=== PATIENT | female | born 1950 | race Caucasian/White ===

== ENCOUNTER 2018-04-28 19:53 | Inpatient (IN) | payer MEDICAID, OTHER ==
[~2018-04-28] VITALS: Ht 147.3 cm; Wt 45.0 kg
[2018-04-28] MEDS ORDERED: ACETAMINOPHEN 500 MG TAB PO STA (22:24)
[2018-04-29] MEDS: DEXTROSE 5%-0.45% NACL 1,000 ML IV SCH ×3 (00:41→17:16)
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
[2018-04-29] MEDS ORDERED: NACL 0.9% 3 ML SYG IV SCH (01:00)
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
[2018-04-29 01:47] VITALS: BP 165/87; PULSE 112; RESP 20
[2018-04-29 02:18] VITALS: Ht 147.3 cm; Wt 45.0 kg
[2018-04-29 05:00] VITALS: BP 155/87
[2018-04-29] MEDS: PANTOPRAZOLE 40 MG INJ IV SCH (05:40)
[2018-04-29 08:00] VITALS: BP 161/81; PULSE 109; RESP 17
[2018-04-29 09:17] VITALS: BP 148/81; PULSE 87
[2018-04-29] MEDS: morphine 2 MG INJ IV PRN ×2 (13:56→18:28)
[2018-04-29 14:20] VITALS: BP 161/83; PULSE 109; RESP 17
[2018-04-29 20:00] VITALS: BP 142/86; PULSE 96; RESP 18
[2018-04-29] MEDS: ONDANSETRON 4 MG INJ IV PRN (21:59)
[2018-04-30 02:00] VITALS: BP 135/79; PULSE 77; RESP 18
[2018-04-30] MEDS: DEXTROSE 5%-0.45% NACL 1,000 ML IV SCH (05:17)
[2018-04-30] MEDS: PANTOPRAZOLE 40 MG INJ IV SCH (05:53)
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
[2018-04-30 08:36] VITALS: BP 124/84; PULSE 79; RESP 18
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
[2018-04-30] MEDS: ENOXAPARIN 40 MG/0.4 ML SYG SC SCH (12:02)
--- NOTE | 2018-04-30 14:10 | RADRPT ---
Echocardiogram Report Patient Name: Lauren NEVAREZnt ID: [id number] : 1950 (67y 10m)Study Date: 04/30/2018 12:34:17 PM Gender: FAccession #: [id number] Tech: Luciano Selby [facility] Location: [id number] Ref.Physician: SUZE DUMONT Height(Cm): BSA: Weight(Kg): Quality: AdequateAccount #: Procedures: Echocardiographic Report: Transthoracic echocardiogram with complete 2D, M-Mode, and doppler examination. Indications: Evaluate Left Ventricular function, and Pre-op. Measurements: 2D/M Mode Doppler Measurement Value Normal Range Measurement Value Normal Range LVIDd 2D 2.6 [ 3.8 - 5.2 ] cm AV Peak Rip 1.9 [ 100.0 - 170.0 ] cm/sec LVIDs 2D 2.0 [ 2.2 - 3.5 ] cm AV Peak PG 15.0 [ 2.0 - 9.0 ] mmHg LVPWd 2D 1.0 [ 0.6 - 0.9 ] cm LVOT Peak Rip 1.2 [ 70.0 - 110.0 ] cm/sec IVSd 2D 0.9 [ 0.6 - 0.9 ] cm LVOT Peak PG 6.0 [ 2.0 - 6.0 ] mmHg AoR Diam 2D 2.5 [ 2.3 - 3.1 ] cm Lat E` Irp 0.1 [ 10.0 - 15.0 ] cm/sec EDV 2D 24.4 [ 46.0 - 106.0 ] ml TR Peak Rip 3.4 [ 100.0 - 280.0 ] cm/sec ESV 2D 13.4 [ 14.0 - 42.0 ] ml TR Peak PG 47.0 mmHg EF 2D 45.1 [ 54.0 - 74.0 ] percent RVSP 50.0 [ 10.0 - 36.0 ] mmHg LA Dimen 2D 2.1 [ 2.7 - 3.8 ] cm RA Pressure 3.0 mmHg Findings: Left Ventricle: Normal left ventricular systolic function. Normal left ventricular cavity size. Normal left ventricular wall thickness. Ejection fraction is visually estimated at 65 %. Tissue Doppler/Mitral Doppler indices are consistent with impaired relaxation (Stage I diastolic dysfunction). Right Ventricle: Normal right ventricular size. Normal right ventricular systolic function. Left Atrium: The left atrium is normal in size. Right Atrium: The right atrium is normal in size. Mitral Valve: Mitral valve leaflets appear mildly thickened. Mild mitral annular calcification. Trace mitral regurgitation. Aortic Valve: Normal appearance of the aortic valve. No significant aortic stenosis or insufficiency. Tricuspid Valve: Normal appearance of the tricuspid valve. Estimated peak PA systolic pressure 50 mmHg. There is mild tricuspid regurgitation. Pulmonic Valve: Normal pulmonic valve appearance. Pericardium: Normal pericardium with no significant pericardial effusion. Aorta: Normal aortic root. IVC: Normal size and normal respiratory collapse consistent with normal right atrial pressure. Conclusions: Normal left ventricular systolic function. Normal left ventricular cavity size. Normal left ventricular wall thickness. Ejection fraction is visually estimated at 65 %. Tissue Doppler/Mitral Doppler indices are consistent with impaired relaxation (Stage I diastolic dysfunction). Electronically Signed By: Alex Whiteside 2018-04-30 14:09:48 PST
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
[2018-04-30 14:40] VITALS: BP 120/82; PULSE 82; RESP 18
[2018-04-30] MEDS: morphine 2 MG INJ IV PRN (16:08)
[2018-04-30 20:31] VITALS: BP 154/90; PULSE 92; RESP 18
[2018-05-01 02:00] VITALS: BP 142/84; RESP 17
[2018-05-01] MEDS: ONDANSETRON 4 MG INJ IV PRN ×2 (02:41→12:50)
[2018-05-01] MEDS: morphine 2 MG INJ IV PRN ×5 (02:41→23:06)
[2018-05-01] MEDS: PANTOPRAZOLE 40 MG INJ IV SCH (05:06)
[2018-05-01 08:25] VITALS: BP 141/81; PULSE 90; RESP 17
[2018-05-01] MEDS: ENOXAPARIN 40 MG/0.4 ML SYG SC SCH (09:00)
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
[2018-05-01 14:00] VITALS: BP 149/81; PULSE 86; RESP 18
[2018-05-01 20:00] VITALS: BP 166/89; PULSE 93; RESP 18
[2018-05-01] MEDS ORDERED: POLYETHYLENE GLYCOL 17 GM PACKET PO ONE (23:30)
[2018-05-02] VITALS (28 sets, daily range): BP systolic 106–179; BP diastolic 63–95; PULSE 87–105; RESP 11–21
[2018-05-02] MEDS: hydrALAzine 20 MG INJ IV PRN (02:54)
[2018-05-02] MEDS: ONDANSETRON 4 MG INJ IV PRN (03:40)
[2018-05-02] MEDS: PANTOPRAZOLE 40 MG INJ IV SCH (05:44)
[2018-05-02] MEDS ORDERED: METOCLOPRAMIDE 10 MG INJ ONE (07:00)
[2018-05-02] MEDS: ENOXAPARIN 40 MG/0.4 ML SYG SC SCH (08:58)
[2018-05-02] MEDS ORDERED: PROPOFOL 20 ML ONE (09:49)
[2018-05-02] MEDS ORDERED: ONDANSETRON 4 MG INJ ONE (09:49)
[2018-05-02] MEDS ORDERED: LIDOCAINE 2% (SDV) 5 ML INJ ONE (09:49)
[2018-05-02] MEDS ORDERED: CEFAZOLIN 1 GM INJ ONE (09:49)
[2018-05-02] MEDS ORDERED: MIDAZOLAM 1 MG/ML 2 ML INJ ONE (10:03)
[2018-05-02] MEDS ORDERED: FENTAnyl 50 MCG/ML VIAL ONE (10:04)
--- NOTE | 2018-05-02 10:45 | PREAC ---
Date/Time of Note Date/Time of Note DATE: 05/02/18 TIME: 10:43 Anesthesia Eval and Record Evaluation Time Pre-Procedure Interview DATE: 05/02/18 TIME: 10:43 Age 67 Sex female NPO: 8 hrs Preoperative diagnosis Left tibial Fx Planned procedure ORIF L tibia Past Medical History Past Medical History: None Surgery & Anesthesia Issues No known issue Meds Anticoagulation: No Beta Clay within 24 hr: No Reason Beta Clay not given: Pt. not on B-Clay Current Medications IV Flush (NS 3 ml) 3 ml PER PROTOCOL IV ; Start 04/29/18 at 01:00 Ondansetron HCl (Zofran Inj) 4 mg Q6H PRN IV NAUSEA/VOMITING Last administered on 05/02/18at 03:40; Admin Dose 4 MG; Start 04/29/18 at 01:00 Morphine Sulfate (morphine) 2 mg Q4H PRN IV .PAIN 7-10 Last administered on 05/01/18at 23:06; Admin Dose 2 MG; Start 04/29/18 at 01:00 Pantoprazole (Protonix Iv) 40 mg DAILY@06 IV Last administered on 05/02/18at 05:44; Admin Dose 40 MG; Start 04/29/18 at 06:00 Enoxaparin Sodium (Lovenox) 40 mg DAILY SC Last administered on 04/30/18at 12:02; Admin Dose 40 MG; Start 04/30/18 at 11:30 Hydralazine HCl (Apresoline) 10 mg Q4H PRN IV ELEVATED SYSTOLIC BP Last administered on 05/02/18at 02:54; Admin Dose 10 MG; Start 05/02/18 at 02:30 Meds reviewed: Yes Allergies Coded Allergies: No Known Allergy (Unverified , 04/28/18) Allergies Reviewed: Yes Labs/Studies Labs Reviewed: Reviewed by anesthesiologist Result Diagram: 05/02/1844005/02/18440 Laboratory Tests 05/02/18 04:41 test: Negative Studies: ECG, CXR, 2D Echo Pre-procedure Exam Last vitals Vital Signs Date Temp Pulse Resp B/P (MAP) Pulse Ox O2 O2 Flow FiO2 Time Delivery Rate 05/02/18 98.5 101 17 106/63 96 Room Air 08:32 (77) Airway: Adequate mouth opening, Adequate thyromental dist Mallampati: Mallampati III Teeth: Abnormal (dentures out) Lung: Normal Heart: Normal ASA Physical Status ASA physical status: 2 Emergency: None Planned Anesthetic General/MAC: LMA Planned Pain Management Single shot nerve block, Parenteral pain med Pre-operative Attestations Prior to commencing anesthesia and surgery, the patient was re-evaluated, there was verification of: *The patient's identity *The results of appropriate recent lab work and preoperative vital signs *The above evaluation not changing prior to induction *Anesthetic plan, risk benefits, alternative and complications discussed with patient/family; questions answered; patient/family understands, accepts and wishes to proceed. SEDRICK TRAMMELL MD May 02, 2018 10:45
[2018-05-02] MEDS ORDERED: LABETALOL HCL 20MG INJ IV PRN (11:00)
[2018-05-02] MEDS ORDERED: FENTAnyl 50 MCG/ML VIAL IV PRN ×2 (11:00)
[2018-05-02] MEDS ORDERED: DIPHENHYDRAMINE 50 MG INJ IV PRN (11:00)
[2018-05-02] MEDS ORDERED: hydrALAzine 20 MG INJ IV PRN (11:00)
[2018-05-02] MEDS ORDERED: ONDANSETRON 4 MG INJ IV PRN (11:00)
[2018-05-02] MEDS ORDERED: MEPERIDINE 25 MG INJ IV PRN (11:00)
[2018-05-02] MEDS ORDERED: HYDROmorphONE 1 MG/5 ML IV SYRINGE IV PRN ×3 (11:00)
[2018-05-02] MEDS ORDERED: POLYMYXIN/BACITRACIN 1L IRRIG ONE (11:10)
--- NOTE | 2018-05-02 11:10 | HPN ---
Date/Time of Note Date/Time of Note DATE: 05/02/18 TIME: 11:06 Interval H&P Admission Note Pt. seen H&P reviewed: No system changes BREONNA BRANHAM MD May 02, 2018 11:10
[2018-05-02] MEDS ORDERED: ROPIVACAINE 0.5 % 30 ML VIAL ONE (11:11)
[2018-05-02] MEDS ORDERED: PHENYLephrine (100 MCG/ML) 5ML SYG ONE (11:46)
[2018-05-02] MEDS ORDERED: PHENYLephrine 10 MG INJ ONE (11:56)
[2018-05-02] MEDS ORDERED: LABETALOL HCL 20MG INJ ONE (13:58)
--- NOTE | 2018-05-02 15:30 | SIPON ---
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
[2018-05-02] MEDS ORDERED: NACL 0.9% 3 ML SYG IV SCH (16:00)
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
--- NOTE | 2018-05-02 17:55 | PAC ---
Date/Time of Note Date/Time of Note DATE: 05/02/18 TIME: 17:54 Post-Anesthesia Notes Post-Anesthesia Note Last documented vital signs Vital Signs Date Temp Pulse Resp B/P (MAP) Pulse Ox O2 O2 Flow FiO2 Time Delivery Rate 05/02/18 98.8 105 14 155/75 97 17:49 (101) 05/02/18 Nasal 16:17 Cannula 05/02/18 3.0 15:33 Activity: WNL Respiratory function: WNL Cardiovascular function: WNL Mental status: Baseline Pain reasonably controlled: Yes Hydration appropriate: Yes Nausea/Vomiting absent: Yes SEDRICK TRAMMELL MD May 02, 2018 17:54
--- NOTE | 2018-05-02 18:34 | OPR ---
DATE OF OPERATION: 05/02/2018 PREOPERATIVE DIAGNOSIS: Lateral tibial plateau fracture of the left knee. POSTOPERATIVE DIAGNOSIS: Lateral tibial plateau fracture of the left knee. OPERATION PERFORMED: Open reduction and internal fixation of the lateral tibial plateau fracture of the left knee. ANESTHESIA: General anesthesia. SURGEON: Ines Branham M.D. PROCEDURE AND FINDINGS: Under anesthesia, the patient was placed in supine position upon the operati ng table. Usual prep and drape was done exposing the left knee. A tourniquet was placed over the pr oximal portion of the left thigh and was inflated up to 300 mmHg prior to the procedure. The lateral tibial plateau of the left knee was approached through the midline incision a little bit lateral to the exact midline. By blunt and sharp dissection, lateral tibia was exposed and it reveal ed a fracture in a triangular shape, which was slightly depressed and laterally displaced with some f luid. The fracture was reduced and then the exploration revealed that the depression was minimal and did not need any elevation of the depressed tissues or bone graft. After reducing the fracture, a s hort size plate for lateral tibial plateau was placed anterolaterally and then internal fixation was carried out using screws, both regular locking screws, maintaining the reduction. At the end of the procedure, the overall alignment of the fracture was satisfactory and the position of the fixation de vice was proper. After irrigation and hemostasis, closure of the incision was carried out using 0 Vi cryl for fascia and synovium. An 0 Vicryl for muscle and tendons. Further closure was carried out w ith a 2-0 Vicryl for subcuticular tissue. Final skin closure was carried out with skin nain. Usu al pressure dressings were applied. The patient tolerated the entire procedure very well and was sent to the recovery room in good condit ion. Dictated By: INES BRANHAM MD IK/NTS Conf#: [id number] DID#: [id number] CC: LEENA MIJARES MD;*EndCC*
[2018-05-02] MEDS: CEFAZOLIN 2 GM/50 ML (PMX) 50 ML IVPB SCH (18:42)
[2018-05-02] MEDS: SOD CHLORIDE 0.9% 1,000 ML IV SCH ×2 (18:45→23:07)
[2018-05-02] MEDS: morphine 2 MG INJ IV PRN (19:32)
[2018-05-02] MEDS: HYDROCODONE/APAP (5/325) TAB PO PRN (20:48)
[2018-05-02] MEDS: morphine 4 MG/ML VIAL IV PRN (22:40)
[2018-05-03] MEDS: CEFAZOLIN 2 GM/50 ML (PMX) 50 ML IVPB SCH ×2 (00:21→08:36)
[2018-05-03 02:00] VITALS: BP 157/90; PULSE 110; RESP 17
[2018-05-03] MEDS: HYDROCODONE/APAP (5/325) TAB PO PRN ×2 (02:45→07:57)
[2018-05-03] MEDS: PANTOPRAZOLE 40 MG INJ IV SCH (05:34)
[2018-05-03] MEDS: morphine 4 MG/ML VIAL IV PRN ×2 (05:35→09:56)
[2018-05-03] MEDS: hydrALAzine 20 MG INJ IV PRN ×2 (07:58→12:48)
[2018-05-03 08:18] VITALS: BP 186/99; PULSE 109; RESP 17
[2018-05-03] MEDS: ENOXAPARIN 40 MG/0.4 ML SYG SC SCH (08:37)
[2018-05-03] MEDS ORDERED: ENOXAPARIN 40 MG/0.4 ML SYG SC SCH (09:00)
--- NOTE | 2018-05-03 12:08 | PN ---
Date/Time of Note Date/Time of Note DATE: 05/03/18 TIME: 12:04 Assessment/Plan VTE Prophylaxis Risk score (from Ns)>0 risk: 5 SCD applied (from Ns): Yes Pharmacological prophylaxis: LMWH Lines/Catheters IV Catheter Type (from Nrsg): Peripheral IV Urinary Cath still in place: No Assessment/Plan Assessment/Plan 1. Left lateral tibial plateau fracture, s/p ORIF, pain control, follow up with ortho and PT 2. HTN, start toprol XL 3. Sinus tachycardia, consider surgery and pain related, TSH, toprol XL 4. DVT prophylaxis, subcutaneous Lovenox. Result Diagram: 05/03/18 0551 05/03/18 0551 Results 24hrs Laboratory Tests Test 05/02/18 15:00 05/03/18 05:51 White Blood Count 8.4 # 7.8 Red Blood Count 3.73 L 3.13 L Hemoglobin 11.2 L 9.6 L Hematocrit 34.6 L 28.5 L Mean Corpuscular Volume 92.8 91.1 Mean Corpuscular Hemoglobin 30.0 30.7 Mean Corpuscular Hemoglobin Concent 32.4 33.7 Red Cell Distribution Width 11.8 11.8 Platelet Count 209 170 Mean Platelet Volume 11.1 H 10.8 H Immature Granulocytes % 0.600 H 0.500 H Neutrophils % 78.0 H 70.6 Lymphocytes % 14.0 L 13.4 L Monocytes % 6.8 14.6 H Eosinophils % 0.1 0.6 Basophils % 0.5 0.3 Nucleated Red Blood Cells % 0.0 0.0 Immature Granulocytes # 0.050 H 0.040 H Neutrophils # 6.5 5.5 Lymphocytes # 1.2 1.1 Monocytes # 0.6 1.1 H Eosinophils # 0.0 0.1 Basophils # 0.0 0.0 Nucleated Red Blood Cells # 0.0 0.0 Sodium Level 137 Potassium Level 3.9 Chloride Level 102 Carbon Dioxide Level 31 Anion Gap 4 L Blood Urea Nitrogen 16 Creatinine 0.61 Est Glomerular Filtrat Rate mL/min > 60 Glucose Level 137 Calcium Level 8.6 Subjective 24 Hr Interval Summary Free Text/Dictation left knee pain Exam/Review of Systems Exam Vitals Vital Signs Date Temp Pulse Resp B/P (MAP) Pulse Ox O2 O2 Flow FiO2 Time Delivery Rate 05/03/18 99.0 109 17 186/99 97 Room Air 08:18 (128) 05/02/18 3.0 15:33 Intake and Output 05/02/18 05/02/18 05/03/18 1515:00 23:00 07:00 IntakeIntake Total 1700 ml 550 ml 490 ml OutputOutput Total 30 ml BalanceBalance 1670 ml 550 ml 490 ml Constitutional: alert, oriented, well developed Psych: no complaints, nl mood/affect Head: normocephalic, atraumatic Eyes: nl conjunctiva, EOMI, nl lids, PERRL ENMT: nl external ears & nose, nl lips & teeth, nl nasal mucosa & septum Neck: supple, non-tender Respiratory: clear to auscultation, normal air movement; No congested cough, No crackles/rales, No diminished breath sounds, No intercostal retraction, No labored breathing, No respirations, No tactile fremitus, No wheezing, No other Cardiovascular: regular rate and rhythm, nl pulses; No bruits, No diastolic murmur, No edema, No gallop, No irregular rhythm, No jugular venous distention (JVD), No murmurs/extra sounds, No rub, No systolic murmur, No S3, No S4, No other Gastrointestinal: soft, nl liver, spleen, non-tender; No ascites, No bowel sounds, No distended, No firm, No hepatomegaly, No mass, No rebound or guarding, No splenomegaly, No surgical scars, No tender, No other Extremities: other (left knee pain) Neurological: SEXER II-XII intact, nl mental status, nl speech, nl strength Results Results 24hrs Laboratory Tests Test 05/02/18 15:00 05/03/18 05:51 White Blood Count 8.4 # 7.8 Red Blood Count 3.73 L 3.13 L Hemoglobin 11.2 L 9.6 L Hematocrit 34.6 L 28.5 L Mean Corpuscular Volume 92.8 91.1 Mean Corpuscular Hemoglobin 30.0 30.7 Mean Corpuscular Hemoglobin Concent 32.4 33.7 Red Cell Distribution Width 11.8 11.8 Platelet Count 209 170 Mean Platelet Volume 11.1 H 10.8 H Immature Granulocytes % 0.600 H 0.500 H Neutrophils % 78.0 H 70.6 Lymphocytes % 14.0 L 13.4 L Monocytes % 6.8 14.6 H Eosinophils % 0.1 0.6 Basophils % 0.5 0.3 Nucleated Red Blood Cells % 0.0 0.0 Immature Granulocytes # 0.050 H 0.040 H Neutrophils # 6.5 5.5 Lymphocytes # 1.2 1.1 Monocytes # 0.6 1.1 H Eosinophils # 0.0 0.1 Basophils # 0.0 0.0 Nucleated Red Blood Cells # 0.0 0.0 Sodium Level 137 Potassium Level 3.9 Chloride Level 102 Carbon Dioxide Level 31 Anion Gap 4 L Blood Urea Nitrogen 16 Creatinine 0.61 Est Glomerular Filtrat Rate mL/min > 60 Glucose Level 137 Calcium Level 8.6 Medications Medication Current Medications Ondansetron HCl (Zofran Inj) 4 mg Q6H PRN IV NAUSEA/VOMITING Last administered on 05/02/18 03:40; Admin Dose 4 MG; Start 04/29/18 at 01:00 Morphine Sulfate (morphine) 2 mg Q4H PRN IV .PAIN 7-10 Last administered on 05/02/18 19:32; Admin Dose 2 MG; Start 04/29/18 at 01:00 Pantoprazole (Protonix Iv) 40 mg DAILY@06 IV Last administered on 05/03/18 05:34; Admin Dose 40 MG; Start 04/29/18 at 06:00 Enoxaparin Sodium (Lovenox) 40 mg DAILY SC Last administered on 05/03/18 08:37; Admin Dose 40 MG; Start 04/30/18 at 11:30 Hydralazine HCl (Apresoline) 10 mg Q4H PRN IV ELEVATED SYSTOLIC BP Last administered on 05/03/18 07:58; Admin Dose 10 MG; Start 05/02/18 at 02:30 IV Flush (NS 3 ml) 3 ml PER PROTOCOL IV ; Start 05/02/18 at 16:00 Morphine Sulfate (morphine) 3 mg Q3H PRN IV SEVERE PAIN LEVEL 7-10 Last administered on 05/03/18 09:56; Admin Dose 3 MG; Start 05/02/18 at 15:30 Acetaminophen/ Hydrocodone Bitart ([place] (5/325)) 1 tab Q3H PRN PO MODERATE PAIN LEVEL 4-6 Last administered on 05/03/18 07:57; Admin Dose 1 TAB; Start 05/02/18 at 15:30 BERRY RICCI MD May 03, 2018 12:08
[2018-05-03] MEDS: METOPROLOL (XL) 50 MG TAB PO SCH (12:48)
[2018-05-03] MEDS: HYDROmorphONE 0.5 MG/0.5 ML SYG IV PRN ×4 (12:49→23:53)
[2018-05-03 12:51] VITALS: BP 186/91; PULSE 130
[2018-05-03] MEDS: ONDANSETRON 4 MG INJ IV PRN (14:03)
[2018-05-03 14:25] VITALS: BP 139/75; PULSE 121; RESP 17
[2018-05-03 20:00] VITALS: BP 172/94; PULSE 111; RESP 18
[2018-05-03 21:38] VITALS: BP 156/90; PULSE 101
[2018-05-04 02:00] VITALS: BP 156/93; PULSE 110; RESP 18
[2018-05-04] MEDS: HYDROmorphONE 0.5 MG/0.5 ML SYG IV PRN ×3 (03:48→10:44)
[2018-05-04] MEDS: PANTOPRAZOLE (EC) 40 MG TAB PO SCH (05:27)
[2018-05-04 08:00] VITALS: BP_SYST 139; BP_SYST 162; BP_DIAS 65; BP_DIAS 89; PULSE 106; PULSE 69; RESP 20
[2018-05-04] MEDS: METOPROLOL (XL) 50 MG TAB PO SCH (08:58)
[2018-05-04] MEDS: ENOXAPARIN 40 MG/0.4 ML SYG SC SCH (08:58)
[2018-05-04 10:40] VITALS: BP 184/104; PULSE 109
[2018-05-04] MEDS: hydrALAzine 20 MG INJ IV PRN (10:44)
[2018-05-04] MEDS ORDERED: POTASSIUM CHLORIDE (SR) 20 MEQ TAB PO STA (11:02)
--- NOTE | 2018-05-04 11:12 | PN ---
Date/Time of Note Date/Time of Note DATE: 05/04/18 TIME: 11:11 Assessment/Plan VTE Prophylaxis Risk score (from Nsg)>0 risk: 4 SCD applied (from Nsg): Yes Pharmacological prophylaxis: LMWH Lines/Catheters IV Catheter Type (from Nrsg): Peripheral IV Urinary Cath still in place: No Assessment/Plan Assessment/Plan 1. Left lateral tibial plateau fracture, s/p ORIF, pain control, follow up with ortho and PT 2. HTN, start toprol XL, add norvasc 3. Sinus tachycardia, consider surgery and pain related, TSH, toprol XL 4. DVT prophylaxis, subcutaneous Lovenox. Result Diagram: 05/04/18 0542 05/04/18 0542 Results 24hrs Laboratory Tests Test 05/04/18 05:42 White Blood Count 10.3 # Red Blood Count 3.09 L Hemoglobin 9.5 L Hematocrit 28.3 L Mean Corpuscular Volume 91.6 Mean Corpuscular Hemoglobin 30.7 Mean Corpuscular Hemoglobin Concent 33.6 Red Cell Distribution Width 11.9 Platelet Count 187 Mean Platelet Volume 11.1 H Immature Granulocytes % 0.700 H Neutrophils % 75.9 Lymphocytes % 11.8 L Monocytes % 10.5 Eosinophils % 0.8 Basophils % 0.3 Nucleated Red Blood Cells % 0.0 Immature Granulocytes # 0.070 H Neutrophils # 7.8 H Lymphocytes # 1.2 Monocytes # 1.1 H Eosinophils # 0.1 Basophils # 0.0 Nucleated Red Blood Cells # 0.0 Sodium Level 137 Potassium Level 3.3 L Chloride Level 95 L Carbon Dioxide Level 30 Anion Gap 12 # Blood Urea Nitrogen 11 Creatinine 0.58 Est Glomerular Filtrat Rate mL/min > 60 Glucose Level 102 Calcium Level 9.0 Thyroid Stimulating Hormone (TSH) 0.138 L Subjective 24 Hr Interval Summary Free Text/Dictation less pain Exam/Review of Systems Exam Vitals Vital Signs Date Temp Pulse Resp B/P (MAP) Pulse Ox O2 O2 Flow FiO2 Time Delivery Rate 05/04/18 109 184/104 10:40 (130) 05/04/18 97.8 20 96 08:00 05/03/18 Room Air 14:25 05/02/18 3.0 15:33 Intake and Output 05/03/18 05/03/18 05/04/18 1515:00 23:00 07:00 IntakeIntake Total 500 ml 100 ml BalanceBalance 500 ml 100 ml Constitutional: alert, oriented, well developed Psych: no complaints, nl mood/affect Head: normocephalic, atraumatic Eyes: nl conjunctiva, EOMI, nl lids ENMT: nl external ears & nose, nl lips & teeth, nl nasal mucosa & septum Neck: supple, non-tender Respiratory: clear to auscultation, normal air movement; No congested cough, No crackles/rales, No diminished breath sounds, No intercostal retraction, No labored breathing, No respirations, No tactile fremitus, No wheezing, No other Cardiovascular: regular rate and rhythm, nl pulses; No bruits, No diastolic murmur, No edema, No gallop, No irregular rhythm, No jugular venous distention (JVD), No murmurs/extra sounds, No rub, No systolic murmur, No S3, No S4, No other Gastrointestinal: soft, nl liver, spleen, non-tender; No ascites, No bowel sounds, No distended, No firm, No hepatomegaly, No mass, No rebound or guarding, No splenomegaly, No surgical scars, No tender, No other Musculoskeletal: nl extremities to inspection Extremities: normal pulses; No calf tenderness, No cyanosis, No clubbing, No edema, No pitting pedal ed manuel, No palpable cord, No tenderness, No other Neurological: GENERAL OFFICE DISPATCHER II-XII intact, nl mental status, nl speech, nl strength Results Results 24hrs Laboratory Tests Test 05/04/18 05:42 White Blood Count 10.3 # Red Blood Count 3.09 L Hemoglobin 9.5 L Hematocrit 28.3 L Mean Corpuscular Volume 91.6 Mean Corpuscular Hemoglobin 30.7 Mean Corpuscular Hemoglobin Concent 33.6 Red Cell Distribution Width 11.9 Platelet Count 187 Mean Platelet Volume 11.1 H Immature Granulocytes % 0.700 H Neutrophils % 75.9 Lymphocytes % 11.8 L Monocytes % 10.5 Eosinophils % 0.8 Basophils % 0.3 Nucleated Red Blood Cells % 0.0 Immature Granulocytes # 0.070 H Neutrophils # 7.8 H Lymphocytes # 1.2 Monocytes # 1.1 H Eosinophils # 0.1 Basophils # 0.0 Nucleated Red Blood Cells # 0.0 Sodium Level 137 Potassium Level 3.3 L Chloride Level 95 L Carbon Dioxide Level 30 Anion Gap 12 # Blood Urea Nitrogen 11 Creatinine 0.58 Est Glomerular Filtrat Rate mL/min > 60 Glucose Level 102 Calcium Level 9.0 Thyroid Stimulating Hormone (TSH) 0.138 L Medications Medication Current Medications Ondansetron HCl (Zofran Inj) 4 mg Q6H PRN IV NAUSEA/VOMITING Last administered on 05/03/18 14:03; Admin Dose 4 MG; Start 04/29/18 at 01:00 Enoxaparin Sodium (Lovenox) 40 mg DAILY SC Last administered on 05/04/18 08:58; Admin Dose 40 MG; Start 04/30/18 at 11:30 Hydralazine HCl (Apresoline) 10 mg Q4H PRN IV ELEVATED SYSTOLIC BP Last administered on 05/04/18 10:44; Admin Dose 10 MG; Start 05/02/18 at 02:30 IV Flush (NS 3 ml) 3 ml PER PROTOCOL IV ; Start 05/02/18 at 16:00 Acetaminophen/ Hydrocodone Bitart ([place] (5/325)) 1 tab Q3H PRN PO MODERATE PAIN LEVEL 4-6 Last administered on 05/03/18 07:57; Admin Dose 1 TAB; Start 05/02/18 at 15:30 Pantoprazole (Protonix Tab) 40 mg DAILY@06 PO Last administered on 05/04/18 05:27; Admin Dose 40 MG; Start 05/04/18 at 06:00 Hydromorphone HCl (Dilaudid) 0.5 mg Q3H PRN IV SEVERE PAIN LEVEL 7-10 Last administered on 05/04/18 10:44; Admin Dose 0.5 MG; Start 05/03/18 at 12:00 Metoprolol Succinate (Toprol Xl) 50 mg DAILY PO Last administered on 05/04/18 08:58; Admin Dose 50 MG; Start 05/03/18 at 12:00 BERRY RICCI MD May 04, 2018 11:12
[2018-05-04] MEDS: AMLODIPINE 5 MG TAB PO SCH ×2 (11:15→20:18)
[2018-05-04] MEDS ORDERED: AMLODIPINE 5 MG TAB PO SCH (11:30)
[2018-05-04 13:00] VITALS: BP 153/85; PULSE 113
[2018-05-04 14:00] VITALS: BP 127/58; PULSE 107; RESP 20
[2018-05-04] MEDS: HYDROCODONE/APAP (5/325) TAB PO PRN ×2 (14:12→19:05)
[2018-05-04 20:09] VITALS: BP 133/78; PULSE 108; RESP 18
[2018-05-05] MEDS: HYDROmorphONE 0.5 MG/0.5 ML SYG IV PRN ×4 (00:38→20:39)
[2018-05-05 02:28] VITALS: BP 118/71; PULSE 97; RESP 18
[2018-05-05] MEDS: HYDROCODONE/APAP (5/325) TAB PO PRN ×2 (05:55→16:54)
[2018-05-05] MEDS: PANTOPRAZOLE (EC) 40 MG TAB PO SCH (05:55)
[2018-05-05 08:00] VITALS: BP 123/68; PULSE 87; RESP 20
[2018-05-05] MEDS: AMLODIPINE 5 MG TAB PO SCH ×2 (08:34→20:39)
[2018-05-05] MEDS: METOPROLOL (XL) 50 MG TAB PO SCH (08:35)
[2018-05-05] MEDS: ENOXAPARIN 40 MG/0.4 ML SYG SC SCH (08:36)
[2018-05-05 14:00] VITALS: BP 128/72; PULSE 64; RESP 18
--- NOTE | 2018-05-05 15:02 | PN ---
Date/Time of Note Date/Time of Note DATE: 05/05/18 TIME: 14:59 Assessment/Plan VTE Prophylaxis Risk score (from Ns)>0 risk: 17 SCD applied (from Ns): Yes Pharmacological prophylaxis: LMWH Lines/Catheters IV Catheter Type (from Nrsg): Peripheral IV Urinary Cath still in place: No Assessment/Plan Assessment/Plan 1. Left lateral tibial plateau fracture, s/p ORIF, pain control, follow up with ortho and PT, d/c planning per classification case manager 2. HTN, controlled 3. Normocytic anemia, follow up with H/H 4. DVT prophylaxis, subcutaneous Lovenox. Result Diagram: 05/04/18 0542 05/05/18 0550 Results 24hrs Laboratory Tests Test 05/05/18 05:50 Sodium Level 137 Potassium Level 3.6 Chloride Level 96 L Carbon Dioxide Level 32 H Anion Gap 9 Blood Urea Nitrogen 12 Creatinine 0.55 Est Glomerular Filtrat Rate mL/min > 60 Glucose Level 118 Calcium Level 8.8 Subjective 24 Hr Interval Summary Free Text/Dictation left knee pain Exam/Review of Systems Exam Vitals Vital Signs Date Temp Pulse Resp B/P (MAP) Pulse Ox O2 O2 Flow FiO2 Time Delivery Rate 05/05/18 98.6 87 20 123/68 96 08:00 (86) 05/03/18 Room Air 14:25 05/02/18 3.0 15:33 Intake and Output 05/04/18 05/04/18 05/05/18 1515:00 23:00 07:00 IntakeIntake Total 350 ml 240 ml BalanceBalance 350 ml 240 ml Constitutional: alert, oriented, well developed Psych: no complaints, nl mood/affect Head: normocephalic, atraumatic Eyes: nl conjunctiva, EOMI, nl lids ENMT: nl external ears & nose, nl lips & teeth, nl nasal mucosa & septum Neck: supple, non-tender Respiratory: clear to auscultation, normal air movement; No congested cough, No crackles/rales, No diminished breath sounds, No intercostal retraction, No labored breathing, No respirations, No tactile fremitus, No wheezing, No other Cardiovascular: regular rate and rhythm, nl pulses; No bruits, No diastolic murmur, No edema, No gallop, No irregular rhythm, No jugular venous distention (JVD), No murmurs/extra sounds, No rub, No systolic murmur, No S3, No S4, No other Gastrointestinal: soft, nl liver, spleen, non-tender Extremities: other (left knee pain) Neurological: ASSISTANT PROFESSOR II-XII intact, nl mental status, nl speech, nl strength Results Results 24hrs Laboratory Tests Test 05/05/18 05:50 Sodium Level 137 Potassium Level 3.6 Chloride Level 96 L Carbon Dioxide Level 32 H Anion Gap 9 Blood Urea Nitrogen 12 Creatinine 0.55 Est Glomerular Filtrat Rate mL/min > 60 Glucose Level 118 Calcium Level 8.8 Medications Medication Current Medications Ondansetron HCl (Zofran Inj) 4 mg Q6H PRN IV NAUSEA/VOMITING Last administered on 05/03/18 14:03; Admin Dose 4 MG; Start 04/29/18 at 01:00 Enoxaparin Sodium (Lovenox) 40 mg DAILY SC Last administered on 05/05/18 08:36; Admin Dose 40 MG; Start 04/30/18 at 11:30 Hydralazine HCl (Apresoline) 10 mg Q4H PRN IV ELEVATED SYSTOLIC BP Last administered on 05/04/18 10:44; Admin Dose 10 MG; Start 05/02/18 at 02:30 IV Flush (NS 3 ml) 3 ml PER PROTOCOL IV ; Start 05/02/18 at 16:00 Acetaminophen/ Hydrocodone Bitart ([place] (5/325)) 1 tab Q3H PRN PO MODERATE PAIN LEVEL 4-6 Last administered on 05/05/18 05:55; Admin Dose 1 TAB; Start 05/02/18 at 15:30 Pantoprazole (Protonix Tab) 40 mg DAILY@06 PO Last administered on 05/05/18 05:55; Admin Dose 40 MG; Start 05/04/18 at 06:00 Hydromorphone HCl (Dilaudid) 0.5 mg Q3H PRN IV SEVERE PAIN LEVEL 7-10 Last administered on 05/05/18 11:41; Admin Dose 0.5 MG; Start 05/03/18 at 12:00 Metoprolol Succinate (Toprol Xl) 50 mg DAILY PO Last administered on 05/05/18 08:35; Admin Dose 50 MG; Start 05/03/18 at 12:00 Amlodipine Besylate (Norvasc) 5 mg BID PO Last administered on 05/05/18at 08:34; Admin Dose 5 MG; Start 05/04/18 at 11:30 BERRY RICCI MD May 05, 2018 15:02
[2018-05-05 20:43] VITALS: BP 136/70; PULSE 96; RESP 18
[2018-05-06] MEDS: HYDROCODONE/APAP (5/325) TAB PO PRN ×4 (00:52→20:48)
[2018-05-06 03:00] VITALS: BP 102/62; PULSE 86; RESP 18
[2018-05-06] MEDS: PANTOPRAZOLE (EC) 40 MG TAB PO SCH (05:14)
[2018-05-06] MEDS: HYDROmorphONE 0.5 MG/0.5 ML SYG IV PRN ×4 (05:15→22:07)
[2018-05-06 08:00] VITALS: BP 133/73; PULSE 94; RESP 18
[2018-05-06] MEDS: ENOXAPARIN 40 MG/0.4 ML SYG SC SCH (08:40)
[2018-05-06] MEDS: METOPROLOL (XL) 50 MG TAB PO SCH (08:40)
[2018-05-06] MEDS: AMLODIPINE 5 MG TAB PO SCH ×2 (08:41→20:48)
[2018-05-06 14:00] VITALS: BP 124/62; PULSE 82; RESP 20
[2018-05-06] MEDS ORDERED: POTASSIUM CHLORIDE (SR) 20 MEQ TAB PO STA (14:29)
--- NOTE | 2018-05-06 14:29 | PN ---
Date/Time of Note Date/Time of Note DATE: 05/06/18 TIME: 14:25 Assessment/Plan VTE Prophylaxis Risk score (from Nsg)>0 risk: 12 SCD applied (from Nsg): Yes Pharmacological prophylaxis: LMWH Lines/Catheters IV Catheter Type (from Nrsg): Peripheral IV Urinary Cath still in place: No Assessment/Plan Assessment/Plan 1. Left lateral tibial plateau fracture, s/p ORIF, pain control, follow up with ortho and PT, d/c planning per child welfare caseworker 2. HTN, controlled 3. Normocytic anemia, follow up with H/H 4. DVT prophylaxis, subcutaneous Lovenox. 5. Patient is self pay, unable to arrange for home health, case is discussed with child welfare caseworker Result Diagram: 05/06/1852405/06/1825 Results 24hrs Laboratory Tests Test 05/06/18 05:25 White Blood Count 7.1 # Red Blood Count 2.82 L Hemoglobin 8.7 L Hematocrit 26.2 L Mean Corpuscular Volume 92.9 Mean Corpuscular Hemoglobin 30.9 Mean Corpuscular Hemoglobin Concent 33.2 Red Cell Distribution Width 11.9 Platelet Count 266 # Mean Platelet Volume 10.9 H Immature Granulocytes % 0.600 H Neutrophils % 64.8 Lymphocytes % 21.2 Monocytes % 9.9 Eosinophils % 3.1 Basophils % 0.4 Nucleated Red Blood Cells % 0.0 Immature Granulocytes # 0.040 H Neutrophils # 4.6 Lymphocytes # 1.5 Monocytes # 0.7 Eosinophils # 0.2 Basophils # 0.0 Nucleated Red Blood Cells # 0.0 Sodium Level 137 Potassium Level 3.4 L Chloride Level 100 Carbon Dioxide Level 35 H Anion Gap 2 L Blood Urea Nitrogen 12 Creatinine 0.49 Est Glomerular Filtrat Rate mL/min > 60 Glucose Level 106 Calcium Level 8.7 Subjective 24 Hr Interval Summary Free Text/Dictation needs help for walking with a walker Exam/Review of Systems Exam Vitals Vital Signs Date Temp Pulse Resp B/P (MAP) Pulse Ox O2 O2 Flow FiO2 Time Delivery Rate 05/06/18 98.6 94 18 133/73 96 08:00 (93) 05/03/18 Room Air 14:25 05/02/18 3.0 15:33 Intake and Output 05/05/18 05/05/18 05/06/18 1515:00 23:00 07:00 IntakeIntake Total 500 ml 280 ml BalanceBalance 500 ml 280 ml Constitutional: alert, oriented, well developed Psych: no complaints, nl mood/affect Head: normocephalic, atraumatic Eyes: nl conjunctiva, EOMI, nl lids ENMT: nl external ears & nose, nl lips & teeth, nl nasal mucosa & septum Neck: supple, non-tender Respiratory: clear to auscultation, normal air movement; No congested cough, No crackles/rales, No diminished breath sounds, No intercostal retraction, No labored breathing, No respirations, No tactile fremitus, No wheezing, No other Cardiovascular: regular rate and rhythm, nl pulses; No bruits, No diastolic murmur, No edema, No gallop, No irregular rhythm, No jugular venous distention (JVD), No murmurs/extra sounds, No rub, No systolic murmur, No S3, No S4, No other Gastrointestinal: soft, nl liver, spleen, non-tender Extremities: other (left knee pain) Neurological: CLAY PIGEON SETTER II-XII intact, nl mental status, nl speech, nl strength Results Results 24hrs Laboratory Tests Test 05/06/18 05:25 White Blood Count 7.1 # Red Blood Count 2.82 L Hemoglobin 8.7 L Hematocrit 26.2 L Mean Corpuscular Volume 92.9 Mean Corpuscular Hemoglobin 30.9 Mean Corpuscular Hemoglobin Concent 33.2 Red Cell Distribution Width 11.9 Platelet Count 266 # Mean Platelet Volume 10.9 H Immature Granulocytes % 0.600 H Neutrophils % 64.8 Lymphocytes % 21.2 Monocytes % 9.9 Eosinophils % 3.1 Basophils % 0.4 Nucleated Red Blood Cells % 0.0 Immature Granulocytes # 0.040 H Neutrophils # 4.6 Lymphocytes # 1.5 Monocytes # 0.7 Eosinophils # 0.2 Basophils # 0.0 Nucleated Red Blood Cells # 0.0 Sodium Level 137 Potassium Level 3.4 L Chloride Level 100 Carbon Dioxide Level 35 H Anion Gap 2 L Blood Urea Nitrogen 12 Creatinine 0.49 Est Glomerular Filtrat Rate mL/min > 60 Glucose Level 106 Calcium Level 8.7 Medications Medication Current Medications Ondansetron HCl (Zofran Inj) 4 mg Q6H PRN IV NAUSEA/VOMITING Last administered on 05/03/18at 14:03; Admin Dose 4 MG; Start 04/29/18 at 01:00 Enoxaparin Sodium (Lovenox) 40 mg DAILY SC Last administered on 05/06/18 08:40; Admin Dose 40 MG; Start 04/30/18 at 11:30 Hydralazine HCl (Apresoline) 10 mg Q4H PRN IV ELEVATED SYSTOLIC BP Last administered on 05/04/18at 10:44; Admin Dose 10 MG; Start 05/02/18 at 02:30 IV Flush (NS 3 ml) 3 ml PER PROTOCOL IV ; Start 05/02/18 at 16:00 Acetaminophen/ Hydrocodone Bitart ([place] (5/325)) 1 tab Q3H PRN PO MODERATE PAIN LEVEL 4-6 Last administered on 05/06/18at 14:11; Admin Dose 1 TAB; Start 05/02/18 at 15:30 Pantoprazole (Protonix Tab) 40 mg DAILY@06 PO Last administered on 05/06/18at 05:14; Admin Dose 40 MG; Start 05/04/18 at 06:00 Hydromorphone HCl (Dilaudid) 0.5 mg Q3H PRN IV SEVERE PAIN LEVEL 7-10 Last administered on 05/06/18 12:06; Admin Dose 0.5 MG; Start 05/03/18 at 12:00 Metoprolol Succinate (Toprol Xl) 50 mg DAILY PO Last administered on 05/06/18 08:40; Admin Dose 50 MG; Start 05/03/18 at 12:00 Amlodipine Besylate (Norvasc) 5 mg BID PO Last administered on 05/06/18at 08:41; Admin Dose 5 MG; Start 05/04/18 at 11:30 BERRY RICCI MD May 06, 2018 14:29
[2018-05-06 19:54] VITALS: BP 141/80; PULSE 84; RESP 18
[2018-05-07 02:00] VITALS: BP 130/71; PULSE 89; RESP 18
[2018-05-07] MEDS: HYDROCODONE/APAP (5/325) TAB PO PRN ×3 (02:18→16:26)
[2018-05-07] MEDS: PANTOPRAZOLE (EC) 40 MG TAB PO SCH (05:32)
[2018-05-07] MEDS: HYDROmorphONE 0.5 MG/0.5 ML SYG IV PRN ×5 (05:33→18:03)
[2018-05-07] MEDS: METOPROLOL (XL) 50 MG TAB PO SCH (08:28)
[2018-05-07] MEDS: AMLODIPINE 5 MG TAB PO SCH (08:29)
[2018-05-07] MEDS: ENOXAPARIN 40 MG/0.4 ML SYG SC SCH (08:35)
[2018-05-07 08:54] VITALS: BP 133/79; PULSE 96; RESP 19
--- NOTE | 2018-05-07 14:18 | DS ---
Date/Time of Note Date/Time of Note DATE: 05/07/18 TIME: 14:17 Discharge Summary Admission/Discharge Info Admit Date/Time Apr 29, 2018 at 00:37 Discharge Date/Time Discharge Diagnosis Tibia fracture Patient Condition: Stable Hospital Course Patient presented with tibia fracture following mechanical fall Open reduction and internal fixation of the lateral tibial plateau fracture of the left knee was performed by Dr Lopes She worked with PT following this Given her lack of insurance, services post-discharge were not able to be provided Primary Care Provider Care Physician No Primary Pending Labs Laboratory Tests Test 05/07/18 04:49 Sodium Level 138 mmol/L (135-144) Potassium Level 4.0 mmol/L (3.5-5.1) Chloride Level 103 mmol/L (97-110) Carbon Dioxide Level 33 mmol/L (21-31) Anion Gap 2 (5-13) Blood Urea Nitrogen 14 mg/dl (7-20) Creatinine 0.53 mg/dl (0.44-1.00) Est Glomerular Filtrat Rate mL/min > 60 mL/min (>60) Glucose Level 105 mg/dl (70-220) Calcium Level 9.4 mg/dl (8.4-10.2) Free Thyroxine 2.34 ng/dl (0.78-2.44) KARIME ENCARNACION MD May 07, 2018 14:18
--- NOTE | 2018-05-07 14:21 | PDOCDIS ---
Discharge Instructions DIAGNOSIS Discharge Diagnosis Tibia fracture CONDITION [id number] Patient Condition: [id number] Stable FOLLOW UP/APPOINTMENTS Follow-up Plan Hans sarahi alejandro con Dr Lopes. [facility] KARIME ENCARNACION MD May 07, 2018 14:21
[2018-05-07 15:26] VITALS: BP 126/72; PULSE 95; RESP 18
== END 2018-05-07 19:40 | disposition home or self-care (01) | DRG 494 ==
LOC: FTE 19:53 → PP2 04-29 00:37
PROVIDERS: ADMIT Internal Medicine; ATTEND Internal Medicine
PROC: 0QSH04Z Reposition Left Tibia with Internal Fixation Device, Open Approach (ICD-10-PCS; principal; 2018-05-02 12:30)
DX: S82.142A Displaced bicondylar fracture of left tibia, initial encounter for closed fracture (principal); M79.651 Pain in right thigh; D72.829 Elevated white blood cell count, unspecified; I10 Essential (primary) hypertension; R00.0 Tachycardia, unspecified; D64.9 Anemia, unspecified; V03.10XA Pedestrian on foot injured in collision with car, pick-up truck or van in traffic accident, initial encounter; Y92.410 Unspecified street and highway as the place of occurrence of the external cause
CPT/HCPCS: 36415; 71045; 73550; 73560; 73562; 73590; 73700; 80048; 80053; 83036; 83690; 83735; 84100; 84439; 84443; 85025; 85610; 85730; 86850; 86900; 86901; 86920; 93005; 93306; 97116; 97162; 97530; C9113; J0360; J0690; J1170; J1650; J2175; J2250; J2270; J2370; J2405; J2765; J2795; J3010; J7030; J7042